=== PATIENT | female | born 1960 | race Caucasian/White ===

== ENCOUNTER 2017-03-31 12:30 | Emergency (ER) | payer MEDICAID ==
[~2017-03-31] VITALS: Ht 5283.9 cm; Wt 54.5 kg
[~2017-03-31 12:30] MED LIST: ALBU8.5H8 IH; CHLO25CA10 PO; GABA-532 PO; MELO-100 PO; TRAM50TA2 PO
[2017-03-31] MEDS ORDERED: ACET1TAB12 PO (13:52)
[2017-03-31 14:15] VITALS: BP 151/110
== END 2017-03-31 14:16 | disposition home or self-care (01) ==
LOC: ER 12:31
DX: M54.5 Low back pain (principal); G89.29 Other chronic pain; E11.42 Type 2 diabetes mellitus with diabetic polyneuropathy; I10 Essential (primary) hypertension; J44.9 Chronic obstructive pulmonary disease, unspecified; F20.9 Schizophrenia, unspecified; F32.9 Major depressive disorder, single episode, unspecified; F15.10 Other stimulant abuse, uncomplicated; F41.9 Anxiety disorder, unspecified; Z59.0 Homelessness; Z87.442 Personal history of urinary calculi; Z88.2 Allergy status to sulfonamides
CPT/HCPCS: 99283

== ENCOUNTER 2017-05-17 17:16 | Emergency (ER) | payer MEDICAID ==
[~2017-05-17] VITALS: Ht 160 cm; Wt 54.0 kg
[~2017-05-17 17:16] MED LIST changes: +ACET1TAB12 PO
[2017-05-17] MEDS ORDERED: AMOX-580 PO (17:34)
[2017-05-17] MEDS ORDERED: TETanus/Pertussis (Acell)/Diphther VAC/PF (Tdap-Adult) 0.5ml syringe IM ONE (17:40)
[2017-05-17 18:28] VITALS: BP 173/106
== END 2017-05-17 18:30 | disposition home or self-care (01) ==
LOC: ER 17:17
DX: S61.451A Open bite of right hand, initial encounter (principal); J44.9 Chronic obstructive pulmonary disease, unspecified; I10 Essential (primary) hypertension; E11.42 Type 2 diabetes mellitus with diabetic polyneuropathy; G89.29 Other chronic pain; F15.10 Other stimulant abuse, uncomplicated; Z88.2 Allergy status to sulfonamides; Z59.0 Homelessness; Z60.2 Problems related to living alone; Z98.890 Other specified postprocedural states; W54.0XXA Bitten by dog, initial encounter; Y93.89 Activity, other specified; Y92.89 Other specified places as the place of occurrence of the external cause; Y99.8 Other external cause status
CPT/HCPCS: 90471; 90715; 99283; A6446; A6449

== ENCOUNTER 2017-09-27 06:33 | Emergency (ER) | payer MEDICAID ==
[~2017-09-27] VITALS: Ht 160 cm; Wt 52.3 kg
[2017-09-27 06:37] VITALS: BP 133/91
[2017-09-27] MEDS ORDERED: mupirocin 2% ointment 22GM TP STA (07:14)
[2017-09-27] MEDS ORDERED: ibuprofen 200mg tablet PO ONE (07:15)
== END 2017-09-27 07:43 | disposition home or self-care (01) ==
LOC: ER 06:34
DX: L23.7 Allergic contact dermatitis due to plants, except food (principal); E11.42 Type 2 diabetes mellitus with diabetic polyneuropathy; I10 Essential (primary) hypertension; F17.200 Nicotine dependence, unspecified, uncomplicated; J44.9 Chronic obstructive pulmonary disease, unspecified; F12.90 Cannabis use, unspecified, uncomplicated; F15.90 Other stimulant use, unspecified, uncomplicated; Z59.0 Homelessness; Z60.2 Problems related to living alone; Z98.890 Other specified postprocedural states; Z88.1 Allergy status to other antibiotic agents; Z88.2 Allergy status to sulfonamides; Z79.899 Other long term (current) drug therapy
CPT/HCPCS: 99284

== ENCOUNTER 2021-12-06 08:33 | Emergency (ER) | payer MEDICAID ==
[~2021-12-06] VITALS: Ht 160 cm; Wt 70.0 kg
[~2021-12-06 08:33] MED LIST changes: +ALBU8.5H17 IH; -ALBU8.5H8 IH
[2021-12-06 09:13] VITALS: BP 156/101
[2021-12-06] MEDS ORDERED: ACET-2971 PO (10:41)
== END 2021-12-06 11:16 | disposition home or self-care (01) ==
LOC: ER 08:35
DX: M25.562 Pain in left knee (principal); H54.7 Unspecified visual loss; I10 Essential (primary) hypertension; J44.9 Chronic obstructive pulmonary disease, unspecified; E11.9 Type 2 diabetes mellitus without complications; M19.90 Unspecified osteoarthritis, unspecified site; G89.29 Other chronic pain; M54.50 Low back pain, unspecified; F15.20 Other stimulant dependence, uncomplicated; F12.90 Cannabis use, unspecified, uncomplicated; Z88.1 Allergy status to other antibiotic agents; Z88.2 Allergy status to sulfonamides; Z98.890 Other specified postprocedural states; Z59.00 Homelessness unspecified
CPT/HCPCS: 99282

== ENCOUNTER 2022-01-13 09:43 | Emergency (ER) | payer MEDICAID ==
[~2022-01-13] VITALS: Ht 160 cm; Wt 57.0 kg
[~2022-01-13 09:43] MED LIST changes: +ACET-2971 PO
[2022-01-13 10:05] VITALS: BP 129/99
[2022-01-13] MEDS ORDERED: GABA300C PO (10:32)
== END 2022-01-13 11:11 | disposition home or self-care (01) ==
LOC: ER 09:44
DX: G89.29 Other chronic pain (principal); M54.2 Cervicalgia; I11.9 Hypertensive heart disease without heart failure; J44.9 Chronic obstructive pulmonary disease, unspecified; E11.9 Type 2 diabetes mellitus without complications; F41.9 Anxiety disorder, unspecified; F20.9 Schizophrenia, unspecified; F12.10 Cannabis abuse, uncomplicated; F15.10 Other stimulant abuse, uncomplicated; Z59.00 Homelessness unspecified; Z88.1 Allergy status to other antibiotic agents; Z88.2 Allergy status to sulfonamides; Z79.899 Other long term (current) drug therapy; Z79.1 Long term (current) use of non-steroidal anti-inflammatories (NSAID); Z79.2 Long term (current) use of antibiotics
CPT/HCPCS: 99281; 99283

== ENCOUNTER 2022-04-13 08:39 | Emergency (ER) | payer MEDICAID ==
[~2022-04-13] VITALS: Ht 160 cm; Wt 61.3 kg
[~2022-04-13 08:39] MED LIST changes: +GABA300C PO
[2022-04-13 08:54] VITALS: BP 178/81
--- NOTE | 2022-04-13 09:27 | NUR ---
I have reviewed and agree with all interventions, assessments performed and documented by SHELIA Waters.
[2022-04-13] MEDS ORDERED: acetaminophen 325mg tablet PO ONE (09:55)
--- NOTE | 2022-04-13 09:56 | NUR ---
Patient states, "I don't want to get any xrays or anything. I want a note from the doctor that will get me a place to stay [place]".
--- NOTE | 2022-04-13 10:13 | NUR ---
Called the [facility] per patient request. She states, "Can you call them and see what they need from you so I can stay there tonight". Called and spoke to Riccardo who states, "We need a note that says she needs bed rest for like four five days". Riccardo did not ask for her name and when I asked if he wanted it he said, "no, just the bed rest note".
== END 2022-04-13 10:28 | disposition home or self-care (01) ==
LOC: ER 08:39
DX: R51.9 Headache, unspecified (principal); I10 Essential (primary) hypertension; J43.9 Emphysema, unspecified; E11.9 Type 2 diabetes mellitus without complications; Z87.442 Personal history of urinary calculi; G89.29 Other chronic pain; F31.9 Bipolar disorder, unspecified; F20.9 Schizophrenia, unspecified; F12.10 Cannabis abuse, uncomplicated; F15.10 Other stimulant abuse, uncomplicated; Z59.00 Homelessness unspecified; Z88.1 Allergy status to other antibiotic agents; Z88.6 Allergy status to analgesic agent; Z88.8 Allergy status to other drugs, medicaments and biological substances; Z79.899 Other long term (current) drug therapy; Y04.8XXA Assault by other bodily force, initial encounter; Y93.89 Activity, other specified; Y92.89 Other specified places as the place of occurrence of the external cause; Y99.8 Other external cause status
CPT/HCPCS: 99282

== ENCOUNTER 2022-10-27 18:10 | Inpatient (IN) | payer MEDICAID ==
[~2022-10-27] VITALS: Ht 160 cm; Wt 59.1 kg
[2022-10-27] MEDS ORDERED: normal saline 1000ml 1,000 ML IV ONE (19:05)
[2022-10-27 19:15] LABS: BASOPHILS # (AUTO) 0.1 X10'3 (0-0.2); EOSINOPHILS # (AUTO) 0.2 X10'3 (0-0.9); EOSINOPHILS % (AUTO) 2.4 % (0-6); HEMATOCRIT 35.4 % (35.0-45.0); HEMOGLOBIN 11.8 g/dl (12.0-16.0); LYMPHOCYTES # (AUTO) 3.2 X10'3 (1.1-4.8); LYMPHOCYTES % (AUTO) 30.7 % (21-51); MEAN CORPUSCULAR HEMOGLOBIN 34.1 PG (27.0-31.0); MEAN CORPUSCULAR HGB CONC 33.3 g/dL (33.0-36.5); MEAN CORPUSCULAR VOLUME 102.4 FL (78-98); MEAN PLATELET VOLUME 7.5 FL (7.4-10.4); MONOCYTES # (AUTO) 0.4 X10'3 (0-0.9); MONOCYTES % (AUTO) 4.3 % (2-12); NEUTROPHILS # (AUTO) 6.4 X10'3 (1.8-7.7); NEUTROPHILS % (AUTO) 61.6 % (42-75); PLATELET COUNT 358 X10'3 (140-440); RED BLOOD COUNT 3.46 X10'6 (4.20-5.60); RED CELL DISTRIBUTION WIDTH 14.9 % (11.5-14.5); WHITE BLOOD COUNT 10.3 X10'3 (4.5-11.0)
[2022-10-27 19:27] LABS: APTT 25 SECONDS (22-32); PROTHROMBIN TIME 10.6 SECONDS (9.0-12.0)
[2022-10-27 19:31] LABS: ALANINE AMINOTRANSFERASE 98 U/L (12-78); ALBUMIN 4.3 G/DL (3.4-5.0); ALBUMIN/GLOBULIN RATIO 0.9 (1.1-1.5); ALKALINE PHOSPHATASE 73 IU/L (46-116); ANION GAP 9 (8-16); ASPARTATE AMINO TRANSFERASE 119 U/L (10-37); BILIRUBIN,TOTAL 0.3 MG/DL (0.1-1.0); BLOOD UREA NITROGEN 23 MG/DL (7-18); BUN/CREATININE RATIO 20.4 (10.0-20.0); CALCIUM 9.4 MG/DL (8.5-10.1); CHLORIDE 101 MMOL/L (99-107); CREATININE 1.13 MG/DL (0.40-0.90); GLUCOSE 111 MG/DL (70-104); POTASSIUM 4.4 MMOL/L (3.5-5.1); SODIUM 138 MMOL/L (135-145); TOTAL CARBON DIOXIDE 27.7 MMOL/L (24-32); TOTAL PROTEIN 9.2 G/DL (6.4-8.2); eCRCL 42 ML/MIN; eGFR 49 ML/MIN
[2022-10-27 19:40] LABS: CKMB RELATIVE INDEX 2.9 RATIO (0-2.5); CREATINE KINASE 704 U/L (26-192); CREATINE KINASE MB 20.3 ng/ml (0.3-3.6); ETHANOL < 10 MG/DL (<10); LIPASE 58 U/L (73-393); MAGNESIUM 2.4 MG/DL (1.5-2.4)
[2022-10-27] MEDS ORDERED: CLON1PAT15 TOP (20:06)
[2022-10-27] MEDS ORDERED: GABA-530 PO (20:06)
[2022-10-27] MEDS ORDERED: LEVO50TA8 PO (20:06)
[2022-10-27] MEDS ORDERED: BUDE10.27 INH (20:06)
--- NOTE | 2022-10-27 20:11 | NUR ---
Tayler truong in ED - 10/27/22 at 2012 by KATELYN report called to maria de jesus oh rn amb at bedside loading patient for tx
[2022-10-27] MEDS ORDERED: magnesium Cl slow-release 64mg tablet PO PRN (21:05)
[2022-10-27] MEDS ORDERED: PERFLUTREN PROTEIN-A MICROSPHR (Optison) 0.22 MG/ML 3ML VIAL IV PRN (21:05)
[2022-10-27] MEDS: normal saline 1000ml 1,000 ML IV SCH (21:05)
[2022-10-27] MEDS ORDERED: magnesium 2GM in 50ml NS 50 ML IV PRN (21:05)
[2022-10-27] MEDS ORDERED: ondansetron/PF 4mg/2ml inj IV PRN (21:05)
[2022-10-27] MEDS ORDERED: potassium Cl 20 mEq SR tablet PO PRN ×2 (21:05)
[2022-10-27] MEDS ORDERED: potassium Cl 40MEQ/1/2NS 520ml 520 ML IV PRN (21:05)
[2022-10-27] MEDS ORDERED: magnesium 4gm in 100ml NS 100 ML IV PRN (21:05)
[2022-10-27] MEDS ORDERED: acetaminophen 650mg rectal suppository RC PRN (21:05)
[2022-10-27 21:56] LABS: BILIRUBIN,URINE NEGATIVE (Neg); CLARITY,URINE CLEAR (Clear); COLOR,URINE YELLOW (Yellow); GLUCOSE, URINE NEGATIVE (Neg); KETONES,URINE NEGATIVE (Neg); LEUKOCYTE ESTERASE ,URINE NEGATIVE (Neg); NITRITES, URINE NEGATIVE (Neg); OCCULT BLOOD,URINE NEGATIVE (Neg); PROTEIN,URINE TRACE mg/dl (Neg); UROBILINOGEN,URINE 0.2 E.U/dL (0.2-1.0)
--- NOTE | 2022-10-27 21:58 | NUR ---
Up on bedpan
[2022-10-27 22:01] LABS: UA COLLECTION TYPE NON-SPECIFIED
[2022-10-27 22:02] LABS: URINE AMPHETAMINE SCREEN POSITIVE (Neg); URINE BARBITUATE SCREEN NEGATIVE (Neg); URINE BENZODIAZEPINES SCREEN NEGATIVE (Neg); URINE CANNABINOID SCREEN POSITIVE (Neg); URINE COCAINE SCREEN NEGATIVE (Neg); URINE METHADONE SCREEN NEGATIVE (Neg); URINE OPIATE SCREEN NEGATIVE (Neg); URINE PHENCYCLIDINE SCREEN NEGATIVE (Neg)
[2022-10-27 22:05] LABS: AMORPHOUS PHOSPHATES 1+; BACTERIA,URINE FEW /HPF (Neg); RBC,URINE 0-2 /HPF (0-2); SQUAMOUS EPITHELIAL CELL,UR FEW /LPF (FEW); TRANSITIONAL EPI CELLS,URINE FEW /HPF
[2022-10-27 23:45] VITALS: BP 153/109; PULSE 80; RESP 12; TEMP 97.7; O2SAT 95
[2022-10-28] VITALS (9 sets, daily range): BP systolic 139–169; BP diastolic 92–107; PULSE 71–78; RESP 12–17; TEMP 97.3–98.5; O2SAT 95–100
[2022-10-28] MEDS ORDERED: hydrALAZINE 20mg/ml inj. IV ONE (00:15)
--- NOTE | 2022-10-28 00:27 | NUR ---
notified of pt's systolic b/p of 153 and diastolic of 109. New order is to give iv hydralazine 5mg once
[2022-10-28] MEDS: normal saline 1000ml 1,000 ML IV SCH ×3 (00:39→20:36)
[2022-10-28 03:12] LABS: BASOPHILS # (AUTO) 0.1 X10'3 (0-0.2); BASOPHILS % (AUTO) 0.5 % (0-1); EOSINOPHILS # (AUTO) 0.1 X10'3 (0-0.9); EOSINOPHILS % (AUTO) 0.4 % (0-6); HEMATOCRIT 33.9 % (35.0-45.0); HEMOGLOBIN 11.4 g/dl (12.0-16.0); LYMPHOCYTES # (AUTO) 1.2 X10'3 (1.1-4.8); LYMPHOCYTES % (AUTO) 9.3 % (21-51); MEAN CORPUSCULAR HGB CONC 33.6 g/dL (33.0-36.5); MEAN CORPUSCULAR VOLUME 101.1 FL (78-98); MEAN PLATELET VOLUME 6.7 FL (7.4-10.4); MONOCYTES # (AUTO) 0.4 X10'3 (0-0.9); MONOCYTES % (AUTO) 3.2 % (2-12); NEUTROPHILS # (AUTO) 10.9 X10'3 (1.8-7.7); NEUTROPHILS % (AUTO) 86.6 % (42-75); PLATELET COUNT 326 X10'3 (140-440); RED BLOOD COUNT 3.35 X10'6 (4.20-5.60); RED CELL DISTRIBUTION WIDTH 14.5 % (11.5-14.5); WHITE BLOOD COUNT 12.6 X10'3 (4.5-11.0)
[2022-10-28 03:29] LABS: ALBUMIN 3.7 G/DL (3.4-5.0); ANION GAP 11 (8-16); BLOOD UREA NITROGEN 17 MG/DL (7-18); BUN/CREATININE RATIO 22.4 (10.0-20.0); CALCIUM 8.5 MG/DL (8.5-10.1); CHLORIDE 101 MMOL/L (99-107); CREATININE 0.76 MG/DL (0.40-0.90); GLUCOSE 97 MG/DL (70-104); SODIUM 136 MMOL/L (135-145); TOTAL CARBON DIOXIDE 24.1 MMOL/L (24-32); eCRCL 63 ML/MIN; eGFR 77 ML/MIN
--- NOTE | 2022-10-28 03:54 | NUR ---
SAE SNELL: [facility] [place] rm [id number] has critical potassium level of 30 and troponin level of 660. Floridalma stephenu .[id number] Addendum: 10/28/22 at 0400 by Floridalma Jimenez RN That is potassium level of 3.0 not 30 Addendum: 10/28/22 at 0412 by Floridalma Jimenez RN Order by is to replace potassium per protocol.
--- NOTE | 2022-10-28 06:29 | NUR ---
Patient in room PCU 3024. I have received report from Floridalma MOLINA and had the opportunity to ask questions and assume patient care.
--- NOTE | 2022-10-28 06:37 | NUR ---
Problems reprioritized. Patient report given, questions answered & plan of care reviewed with Alex.
[2022-10-28] MEDS: K and/or MAG REPLACEMENT MC SCH ×2 (08:00→19:48)
[2022-10-28] MEDS ORDERED: albuterol 2.5 MG/3 ML nebule NEB PRN (08:05)
[2022-10-28] MEDS ORDERED: cloNIDine 0.2 MG/24 HR patch (7 day patch) TD SCH (08:05)
[2022-10-28] MEDS: enoxaparin 30mg/0.3ml syringe SUBCUT SCH ×2 (08:07→19:46)
--- NOTE | 2022-10-28 09:18 | NUR ---
Received order for consult. Met with patient in regards to substance use and to see if patient was interested in resources for treatment options. Patient is interested in outpatient resources. I gave patient a list of resources, a card for [facility] and my card to call me with any questions.
[2022-10-28] MEDS ORDERED: potassium Cl 40MEQ/1/2NS 520ml 520 ML IV ONE (10:30)
[2022-10-28] MEDS: acetaminophen 325mg tablet PO PRN (11:45)
[2022-10-28] MEDS: diphenhydrAMINE 25mg capsule PO PRN (11:45)
[2022-10-28] MEDS ORDERED: gabapentin 100mg capsule PO SCH (13:00)
--- NOTE | 2022-10-28 14:40 | NUR ---
PAGER ID: [phone] MESSAGE: Av [id number], Is pt being discharged today? If not can we start a diet for her? Alex [phone]
--- NOTE | 2022-10-28 15:58 | NUR ---
Tried to call Dr Sesay about getting a diet for the pt but did not get a hold of him, I will call back again.
--- NOTE | 2022-10-28 18:35 | NUR ---
Problems reprioritized. Patient report given, questions answered & plan of care reviewed with Floridalma MOLINA.
[2022-10-28] MEDS: gabapentin 100mg capsule PO SCH (19:44)
[2022-10-29 02:00] VITALS: BP 145/90; PULSE 76; RESP 15; TEMP 98; O2SAT 95
[2022-10-29] MEDS: acetaminophen 325mg tablet PO PRN ×2 (04:59→10:35)
[2022-10-29] MEDS: normal saline 1000ml 1,000 ML IV SCH (05:00)
--- NOTE | 2022-10-29 06:25 | NUR ---
Patient in room PCU 3024. I have received report from Floridalma MOLINA and had the opportunity to ask questions and assume patient care.
--- NOTE | 2022-10-29 06:25 | NUR ---
Problems reprioritized. Patient report given, questions answered & plan of care reviewed with Alex
[2022-10-29 06:35] LABS: ALBUMIN 3.2 G/DL (3.4-5.0); ANION GAP 10 (8-16); BLOOD UREA NITROGEN 16 MG/DL (7-18); BUN/CREATININE RATIO 20.3 (10.0-20.0); CALCIUM 8.2 MG/DL (8.5-10.1); CHLORIDE 101 MMOL/L (99-107); CREATININE 0.79 MG/DL (0.40-0.90); GLUCOSE 84 MG/DL (70-104); MAGNESIUM 1.9 MG/DL (1.5-2.4); POTASSIUM 3.7 MMOL/L (3.5-5.1); SODIUM 132 MMOL/L (135-145); eCRCL 60 ML/MIN; eGFR 74 ML/MIN
[2022-10-29 06:38] LABS: BASOPHILS # (AUTO) 0.1 X10'3 (0-0.2); EOSINOPHILS # (AUTO) 0.1 X10'3 (0-0.9); HEMATOCRIT 37.3 % (35.0-45.0); HEMOGLOBIN 12.2 g/dl (12.0-16.0); LYMPHOCYTES # (AUTO) 1.9 X10'3 (1.1-4.8); LYMPHOCYTES % (AUTO) 26.9 % (21-51); MEAN CORPUSCULAR HEMOGLOBIN 34.1 PG (27.0-31.0); MEAN CORPUSCULAR HGB CONC 32.8 g/dL (33.0-36.5); MEAN CORPUSCULAR VOLUME 103.8 FL (78-98); MEAN PLATELET VOLUME 7.7 FL (7.4-10.4); MONOCYTES # (AUTO) 0.4 X10'3 (0-0.9); MONOCYTES % (AUTO) 5.8 % (2-12); NEUTROPHILS # (AUTO) 4.6 X10'3 (1.8-7.7); NEUTROPHILS % (AUTO) 64.3 % (42-75); PLATELET COUNT 304 X10'3 (140-440); RED BLOOD COUNT 3.59 X10'6 (4.20-5.60); RED CELL DISTRIBUTION WIDTH 15.2 % (11.5-14.5); WHITE BLOOD COUNT 7.1 X10'3 (4.5-11.0)
[2022-10-29 07:00] VITALS: BP 128/92; PULSE 74; RESP 14; TEMP 98.1; O2SAT 98
[2022-10-29 08:00] VITALS: RESP 14; O2SAT 98
[2022-10-29] MEDS: K and/or MAG REPLACEMENT MC SCH (08:00)
[2022-10-29] MEDS ORDERED: levoTHYROXINE 25mcg tablet PO SCH (08:00)
[2022-10-29] MEDS: gabapentin 100mg capsule PO SCH (08:10)
[2022-10-29] MEDS: enoxaparin 30mg/0.3ml syringe SUBCUT SCH (08:11)
[2022-10-29] MEDS: diphenhydrAMINE 25mg capsule PO PRN (10:34)
[2022-10-29 11:00] VITALS: BP 134/80; PULSE 84; RESP 16; TEMP 99.1; O2SAT 95
--- NOTE | 2022-10-29 15:54 | NUR ---
Pt was DC'd as per 's orders. Pt was unhooked from all tele and IV's. Education was provided to pt in room, all questions answered. Pt was suggested to find a primary care facility for follow up and managed care. All belongings were gathered and sent with pt. Pt is homeless and has been seen by case management and social care for aid to be given to her. Pt was wheeled down in her new wheelchair that was provided for her to the lobby. Pt had no transport and [facility] [place] her group she lives with.
[2022-10-29] MEDS ORDERED: LEVO-65 PO (17:46)
[2022-10-29] MEDS ORDERED: ATOR10TA PO (17:53)
[2022-10-29] MEDS ORDERED: ASPI81TA52 PO (17:53)
[2022-10-29] MEDS ORDERED: CARV3.12 PO (17:53)
== END 2022-10-29 15:05 | disposition home or self-care (01) | DRG 812 ==
LOC: ER 18:11 → PCU 3S 21:14
PROVIDERS: ADMIT Internal Medicine; ATTEND Internal Medicine
PROC: 5A12012 Performance of Cardiac Output, Single, Manual (ICD-10-PCS; principal; 2022-10-27)
DX: T40.411A Poisoning by fentanyl or fentanyl analogs, accidental (unintentional), initial encounter (principal); I46.9 Cardiac arrest, cause unspecified; G92.8 Other toxic encephalopathy; S26.91XA Contusion of heart, unspecified with or without hemopericardium, initial encounter; F15.10 Other stimulant abuse, uncomplicated; F20.9 Schizophrenia, unspecified; I10 Essential (primary) hypertension; F32.A Depression, unspecified; F41.9 Anxiety disorder, unspecified; E11.42 Type 2 diabetes mellitus with diabetic polyneuropathy; J43.9 Emphysema, unspecified; X58.XXXA Exposure to other specified factors, initial encounter; R77.8 Other specified abnormalities of plasma proteins; E03.9 Hypothyroidism, unspecified; E87.6 Hypokalemia; G89.29 Other chronic pain; Z59.00 Homelessness unspecified; Y93.89 Activity, other specified; Z88.1 Allergy status to other antibiotic agents; Z88.2 Allergy status to sulfonamides; Z88.8 Allergy status to other drugs, medicaments and biological substances; Z79.899 Other long term (current) drug therapy; Z87.442 Personal history of urinary calculi; Y92.89 Other specified places as the place of occurrence of the external cause; Y99.8 Other external cause status
CPT/HCPCS: 36415; 71045; 80048; 80053; 80305; 80320; 81001; 82550; 82553; 83690; 83735; 83874; 84484; 85025; 85610; 85730; 87077; 87081; 87088; 87186; 93005; 93306; 97161; 97530; 99285; A4615; G0378; J0360; J1650; J3480; J7030; Q0163

== ENCOUNTER 2022-11-07 08:37 | Emergency (ER) | payer MEDICAID ==
[~2022-11-07] VITALS: Ht 190.5 cm; Wt 59.1 kg
[~2022-11-07 08:37] MED LIST changes: -ACET-2971 PO; -ACET1TAB12 PO; +ASPI81TA52 PO; +ATOR10TA PO; +BUDE10.27 INH; +CARV3.12 PO; -CHLO25CA10 PO; +CLON1PAT15 TOP; +GABA-530 PO; -GABA-532 PO; -GABA300C PO; +LEVO50TA8 PO; -MELO-100 PO; -TRAM50TA2 PO
[2022-11-07] MEDS ORDERED: ondansetron/PF 4mg/2ml inj IV ONE (10:30)
[2022-11-07] MEDS ORDERED: morphine 2 MG/ML inj. syringe IV ONE (10:30)
[2022-11-07] MEDS ORDERED: ketorolac tromethamine 15mg/ml inj. IV ONE (10:30)
[2022-11-07 11:27] LABS: ALANINE AMINOTRANSFERASE 18 U/L (12-78); ALBUMIN 3.2 G/DL (3.4-5.0); ALBUMIN/GLOBULIN RATIO 0.6 (1.1-1.5); ALKALINE PHOSPHATASE 163 IU/L (46-116); ANION GAP 20 (8-16); ASPARTATE AMINO TRANSFERASE 24 U/L (10-37); BILIRUBIN,TOTAL 0.4 MG/DL (0.1-1.0); BLOOD UREA NITROGEN 25 MG/DL (7-18); BUN/CREATININE RATIO 20.2 (10.0-20.0); CALCIUM 9.7 MG/DL (8.5-10.1); CHLORIDE 99 MMOL/L (99-107); CREATININE 1.24 MG/DL (0.40-0.90); GLUCOSE 57 MG/DL (70-104); POTASSIUM 4.2 MMOL/L (3.5-5.1); SODIUM 137 MMOL/L (135-145); TOTAL CARBON DIOXIDE 17.9 MMOL/L (24-32); TOTAL PROTEIN 8.9 G/DL (6.4-8.2); eCRCL 43 ML/MIN; eGFR 44 ML/MIN
[2022-11-07] MEDS ORDERED: dexamethasone sod phosphate 10mg/ml inj IV STA (11:42)
[2022-11-07] MEDS ORDERED: dextrose 50%-water 50ml dispensing syringe IV ONE (11:45)
[2022-11-07 12:28] LABS: BASOPHILS # (AUTO) 0.1 X10'3 (0-0.2); BASOPHILS % (AUTO) 0.9 % (0-1); EOSINOPHILS # (AUTO) 0.1 X10'3 (0-0.9); EOSINOPHILS % (AUTO) 0.9 % (0-6); HEMATOCRIT 32.3 % (35.0-45.0); HEMOGLOBIN 10.7 g/dl (12.0-16.0); LYMPHOCYTES # (AUTO) 0.5 X10'3 (1.1-4.8); LYMPHOCYTES % (AUTO) 3.2 % (21-51); MEAN CORPUSCULAR HEMOGLOBIN 33.4 PG (27.0-31.0); MEAN CORPUSCULAR HGB CONC 33.1 g/dL (33.0-36.5); MEAN CORPUSCULAR VOLUME 100.9 FL (78-98); MEAN PLATELET VOLUME 7.5 FL (7.4-10.4); MONOCYTES # (AUTO) 0.3 X10'3 (0-0.9); MONOCYTES % (AUTO) 1.6 % (2-12); NEUTROPHILS # (AUTO) 16.2 X10'3 (1.8-7.7); NEUTROPHILS % (AUTO) 93.4 % (42-75); PLATELET COUNT 334 X10'3 (140-440); RED CELL DISTRIBUTION WIDTH 15.5 % (11.5-14.5); WHITE BLOOD COUNT 17.4 X10'3 (4.5-11.0)
[2022-11-07 12:38] LABS: INR 1.2 INR; PROTHROMBIN TIME 12.6 SECONDS (9.0-12.0)
[2022-11-07 12:47] LABS: ANISOCYTOSIS 1+; PLATELET ESTIMATE NORMAL; TOTAL CELLS COUNTED 100
[2022-11-07 12:48] LABS: BURR CELLS 1+; ROULEAUX 1+; TOXIC GRANULATION 1+; TOXIC VACUOLATION FEW
[2022-11-07 12:52] LABS: CREATINE KINASE 37 U/L (26-192)
[2022-11-07] MEDS ORDERED: piperacillin/tazo 3.375gm/50ml 50 ML IV ONE (13:15)
[2022-11-07 13:19] LABS: C-REACTIVE PROTEIN 37.88 MG/DL (0.0-0.5); THYROID STIMULATING HORMONE 60.85 ulU/ml (0.34-4.50)
[2022-11-07] MEDS ORDERED: VANCOMYCIN 1,500MG in NS 300ml IVPB IV ONE (13:25)
[2022-11-07] MEDS ORDERED: morphine 4 MG/ML inj SYRINge IV ONE ×2 (13:35)
[2022-11-07] MEDS ORDERED: LEVOTHYROXINE SODIUM 100 MCG/5 ML injection IV ONE (13:35)
--- NOTE | 2022-11-07 14:15 | NUR ---
PT WENT TO MRI
--- NOTE | 2022-11-07 15:37 | NUR ---
PT RETURNED FROM MRI
--- NOTE | 2022-11-07 16:49 | NUR ---
SOFT COLLAR APPLIED PER DR BRANNON VERBAL ORDER
--- NOTE | 2022-11-07 17:54 | NUR ---
GAVE REPORT TO LESLIE FROM TRANSPORT
--- NOTE | 2022-11-07 22:42 | NUR ---
Report called to Kirill hinkle [facility]. Phone number [phone], EX [phone]
[2022-11-07 22:43] VITALS: BP 126/90; PULSE 85; RESP 16; TEMP 98.7; O2SAT 0
--- NOTE | 2022-11-08 00:08 | NUR ---
received Blood culture result: drawn 11-07-22 [id number] anerobic bottle: gram + cocci Called over to [facility] and talked to Michael RN her nurse to tell him.
== END 2022-11-07 22:48 | disposition hospice, inpatient (51) ==
LOC: ER 08:38
DX: M46.42 Discitis, unspecified, cervical region (principal); M54.2 Cervicalgia; E03.9 Hypothyroidism, unspecified; J43.9 Emphysema, unspecified; F31.9 Bipolar disorder, unspecified; F20.9 Schizophrenia, unspecified; G89.29 Other chronic pain; M54.9 Dorsalgia, unspecified
CPT/HCPCS: 36415; 70450; 71045; 72125; 72141; 72146; 80053; 82550; 82948; 83605; 84145; 84443; 85007; 85025; 85610; 85651; 86140; 87040; 87077; 87186; 96365; 96366; 96368; 96375; 96376; 99291; 99292; J1100; J1885; J2270; J2405; J2543; J3370; J3490; J7040; C1758

== ENCOUNTER 2024-09-04 16:03 | Emergency (ER) | payer MEDICARE, MEDICAID ==
[~2024-09-04] VITALS: Ht 152.4 cm; Wt 45.5 kg
[~2024-09-04 16:03] MED LIST changes: -ASPI81TA52 PO
[2024-09-04 16:10] VITALS: BP 148/123; PULSE 100; RESP 18; TEMP 97.7; O2SAT 98
--- NOTE | 2024-09-04 16:14 | Physician Documentation ---
History of Present Illness ~ General Chief Complaint: See Chief Complaint Stated Complaint: "JUST WANTS TO SEE A DR AND PAIN MEDS" Time Seen by MD: 16:17 Primary Medical Doctor: None History of Present Illness Initial Comments This is a 64-year-old female brought in by EMS, per EMS report patient had called nine while on to see a doctor and get pain meds on triage patient reports that she is looking for a place to get out of the heat and is requesting water and a ride to the [facility]. Patient reports no other acute symptoms or concerns. Medication Reconciliation Allergies: Coded Allergies: Cephalexin Monohydrate (Unverified Allergy, Intermediate, HIVES, 09/04/24) Sulfa (Sulfonamide Antibiotics) (Unverified Allergy, Intermediate, HIVES, "TERRIBLE REACTION", 09/04/24) Scheduled Atorvastatin Calcium (Lipitor), 1 TAB PO DAILY Carvedilol (Coreg), 1 TAB PO Q12H Clonidine (Clonidine), 1 PATCH TOP Q7D, (Reported) Gabapentin (Gabapentin), 1 CAP PO TID, (Reported) Levothyroxine Sodium (Levothyroxine Sodium), 1 TAB PO DAILY, (Reported) Scheduled PRN Albuterol Sulfate (Proair Hfa), 2 PUFFS IH QID PRN for SOB or wheezing, (R eported) Miscellaneous Medications Budesonide/Formoterol Fumarate (Budesonide-Formoterol 80-4.5), 2 PUFFS INH, (Reported) Past Medical History Past Medical History: Peripheral Neuropathy, Arrhythmia, Hypertension, Asthma, COPD, Emphysema, Diverticulitis, Hepatitis B, Hepatitis C, Pancreatitis, Liver Disease, Kidney Stones, Diabetes, Thyroid (unspecified), Arthritis, Chronic Pain, Chronic Back Pain, Anxiety, Depression, Schizophrenia Past Surgical History: , orthopedic surgeries Alcohol Use: Occasionally Drug Use: marijuana, methamphetamine Lives with: Alone Lives In: Homeless Occupation: disabled Review of Systems ROS As stated above in the HPI, otherwise all systems are reviewed and negative. Physical Exam Physical Exam Vital Signs: Temperature: 97.7, Source: Temporal, Heart Rate: 100, Respiratory Rate: 18, BP: 148/123, Pulse Oximetry: 98, Weight: 45.450 Oxygen Flow Rate: 0 Physical Exam VITALS: Reviewed and as above. GENERAL: Alert and oriented x4, nontoxic appearing, no apparent distress. RESPIRATORY: No increased work of breathing, no respiratory distress, speaking in full clear sentences Progress Results/Orders Results/Orders Vital Signs 09/04/24 16:10 Temp 97.7 Pulse 100 Resp 18 B/P (MAP) 148/123 Pulse Ox 98 O2 Flow Rate 0 Medical Decision Making Findings 64-year-old female presented by EMS, per EMS reports she had called 911 due to pain and needing to see a doctor, on triage patient reported desire to go to the [facility]. I believe patient utilize the 911 system for transportation from out of town into [facility] in order to make her way to the [facility]. Patient reported no acute symptoms or concerns. There was no evidence of an acute medical condi tion and patient is appropriate for discharge. Differential Diagnosis Malingering, homeless, hungry, heat exhaustion Departure Disposition: HOME / SELF CARE / HOMELESS Impression: Primary Impression: Homeless Additional Impression: General medical exam Condition: Improved Additional Instructions: Please follow up with your primary care provider or the [facility] in the next few days. Please return to the emergency department for any new or worsening concerning symptoms. Referrals: NO PRIMARY CARE PROVIDER (PCP) Education Educated: Patient Educated regarding: diagnosis, treatment, prognosis, need for follow up Signature Scribe Signature: No scribe Attestation: The note accurately reflects work and decisions made by me.GUILLE Bacon 09/05/24 02:42 AXEL GALAN NP Sep 04, 2024 16:14 EUGENE NICOLAS Sep 04, 2024 16:44
== END 2024-09-04 16:47 | disposition home or self-care (01) ==
LOC: ER 16:04
DX: R52 Pain, unspecified (principal); E11.42 Type 2 diabetes mellitus with diabetic polyneuropathy; F12.90 Cannabis use, unspecified, uncomplicated; F15.90 Other stimulant use, unspecified, uncomplicated; F41.9 Anxiety disorder, unspecified; F32.A Depression, unspecified; F20.9 Schizophrenia, unspecified; I10 Essential (primary) hypertension; M19.90 Unspecified osteoarthritis, unspecified site; Z88.2 Allergy status to sulfonamides; Z59.00 Homelessness unspecified; Z88.1 Allergy status to other antibiotic agents; Z79.899 Other long term (current) drug therapy; Z87.442 Personal history of urinary calculi; Z72.89 Other problems related to lifestyle; Z60.2 Problems related to living alone
CPT/HCPCS: 99283